=== PATIENT | male | born 1990 | race Caucasian/White ===

== ENCOUNTER 2018-03-27 00:35 | Emergency (ER) | payer OTHER ==
[~2018-03-27] VITALS: Ht 180.3 cm; Wt 158.8 kg
[2018-03-27 00:40] VITALS: BP 129/76
[2018-03-27] MEDS: KETOROLAC 30 MG/ML VIAL IM ONE (01:34)
[2018-03-27 01:59] VITALS: BP 134/75
== END 2018-03-27 01:59 | disposition home or self-care (01) ==
LOC: MED 00:35
DX: S39.011A Strain of muscle, fascia and tendon of abdomen, initial encounter (principal); R03.0 Elevated blood-pressure reading, without diagnosis of hypertension; X50.0XXA Overexertion from strenuous movement or load, initial encounter; Y93.89 Activity, other specified; Y92.89 Other specified places as the place of occurrence of the external cause; Y99.0 Civilian activity done for income or pay
CPT/HCPCS: 96372; 99283; J1885